=== PATIENT | female | born 2000 | race African-American/Black ===

== ENCOUNTER 2019-04-22 14:48 | Emergency (ER) | payer SELFPAY ==
[~2019-04-22] VITALS: Ht 167.6 cm; Wt 82.0 kg
[2019-04-22] MEDS ORDERED: DEXAMETHASONE 10 MG/ML VIAL PO ONE (17:00)
[2019-04-22 18:21] VITALS: BP 133/72
== END 2019-04-22 18:21 | disposition home or self-care (01) ==
LOC: ER 14:48
DX: J02.9 Acute pharyngitis, unspecified (principal)
CPT/HCPCS: 87070; 87430; 99282; J1100